=== PATIENT | female | born 1980 | race Caucasian/White ===

== ENCOUNTER 2016-08-05 02:16 | Emergency (ER) | payer MEDICARE, MEDICAID ==
[~2016-08-05 02:16] MED LIST: ADVIL200 MG PO; CARAFATE1 G2 PO; CHOLESTYRAMINE378 G1 PO; CLARITIN10 M2 PO; CLARITIN10 M6 PO; CPAP; CYCLOBENZAPRINE PO; DICLOFENAC SODI50 M1 PO; DOC-Q-LACE100 M1 PO; DOXYCYCLINE HY100 MG PO; FLEXERIL 10MG PO; FLEXERIL10 MG PO; HYDROCHLOROTHIA25 MG PO; KEFLEX500 MG PO; LEVAQUIN500 MG PO; NORCO 10/3251 TAB PO; OXYCODON-ACETA1 EAC4 PO; PEPCID20 M1 PO; PERCOCET 10 MG/1 TA1 PO; PERCOCET 5/3251 TAB PO; PREDNISONE10 M1 PO; SINGULAIR10 M1 PO; SYMBICORT 160-1 PUFF INH; TOPAMAX50 M3 PO; VICODIN 5/500 T1 TAB PO; XOPENEX1.25 MG/2 INH; ZOFRAN4 M2 PO
[2016-08-05] MEDS ORDERED: AUGMENTIN 875-1 EAC2 PO (03:36)
[2016-08-05] MEDS ORDERED: NORCO 5/3251 TAB PO (03:36)
== END 2016-08-05 04:08 ==
LOC: EDMED 02:16
DX: H66.92 Otitis media, unspecified, left ear (principal); F32.9 Major depressive disorder, single episode, unspecified; F41.9 Anxiety disorder, unspecified; I10 Essential (primary) hypertension; F17.200 Nicotine dependence, unspecified, uncomplicated; Z79.899 Other long term (current) drug therapy
CPT/HCPCS: J1170